=== PATIENT | female | born 1965 | race Caucasian/White ===

== ENCOUNTER 2021-07-28 19:38 | Emergency (ER) | payer BC, SELFPAY ==
[2021-07-28 19:39] VITALS: BP 144/97; PULSE 97; RESP 16; TEMP 37.1; O2SAT 98; BMI 35.4
--- NOTE | 2021-07-28 20:21 | CT_ITS ---
PROCEDURE INFORMATION: Exam: CT Abdomen And Pelvis With Contrast Exam date and time: 07/28/2021 9:43 PM Age: 56 years old Clinical indication: Abdominal pain; Generalized; Additional info: Abd pain TECHNIQUE: Imaging protocol: Computed tomography of the abdomen and pelvis with contrast. Radiation optimization: All CT scans at this facility use at least one of these dose optimization techniques: automated exposure control; mA and/or kV adjustment per patient size (includes targeted exams where dose is matched to clinical indication); or iterative reconstruction. Contrast material: ISOVUE; Contrast volume: 75 ml; Contrast route: IV; COMPARISON: No relevant prior studies available. FINDINGS: Lungs: Subsegmental atelectasis or interstitial scarring in the posterior lower lungs. No focal consolidation, as visualized. Heart: Coronary artery calcification is present. Liver: Hepatomegaly. Heterogeneously diminished liver attenuation suggesting patchy fatty change. No mass. Gallbladder and bile ducts: Cholelithiasis, multiple calcified gallstones pooling in the gallbladder neck. Distended gallbladder. No definite wall thickening or pericholecystic fluid. Borderline dilated common duct 7-8 mm. No calcified stones are seen in the ducts. No intrahepatic biliary dilatation. Pancreas: Mildly diminished attenuation in the posterior body of pancreas toward the left of midline series 3, image 62, coronal images 32-33, sagittal images 74-75. This could be an area of edema, ill-defined 1.5 cm mass or cyst, or focal fatty change. This has HU density measurements of 5-20. No ductal dilatation. There is slight retroperitoneal soft tissue edema on the left, but this is likely emanating from the left kidney rather than pancreas. Spleen: The spleen is normal. Adrenal glands: The adrenal glands are normal. Kidneys and ureters: There is mild to moderate left hydronephrosis, with an obstructing stone at left ureteropelvic junction of approximately 9 x 5 x 8 mm diameter series 3, image 80, and coronal series 1001, image 38. 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 There is an additional 6 mm nonobstructing stone at the left lower pole. Left perinephric edema is probably due to the obstruction, differential would be superimposed UTI. On the right, there is no hydronephrosis, hydroureter, or calcified obstructing stone. A hypoattenuating 1 cm posterior right renal cortical lesion series 3, image 82 and coronal image 47 has heterogeneous internal enhanced density of approximately 16 -38 HU, and could be complex cyst or solid lesion. There are scattered subcentimeter hypoattenuating lesions in the right kidney of up to 8 mm which may be tiny cysts, too small to accurately characterize. Stomach and bowel: There is diverticulosis coli, without evidence of acute diverticulitis. Though there is trace left pericolic soft tissue stranding, but this appears to be emanating from the left kidney. Some scattered small intestinal air-fluid levels, no significantly dilated loops or mucosal thickening. No acute findings in the stomach. A very small hiatal hernia. Appendix: No findings of appendicitis. Intraperitoneal space: There is no free intraperitoneal air. There is no significant free intraperitoneal fluid. Arteries: There is no aortic aneurysm. Veins: Patent enhancing main portal vein. No portal venous gas. Lymph nodes: Slightly prominent left retroperitoneal node 1.4 x 1.0 x 1.8 cm at the level of the left kidney, probably reactive, series 3,
[2021-07-28 20:30] LABS: Microscopic, Urine URINE MICROSCOPIC (MICROSCOPIC)
[2021-07-28 20:37] LABS: Appearance,Urine SL CLOUDY (Clear); Bilirubin,Urine Negative (Negative); Blood, Urine TRACE-I (Negative); Color,Urine YELLOW (Yellow); Glucose,Urine (UA) Negative (Negative); Ketones,Urine Negative (Negative); Leukocyte Esterase,Urine Negative (Negative); Nitrate,Urine Negative (Negative); Protein,Urine Negative (Negative); Specific Gravity, Urine 1.025 (1.005-1.030); Urobilinogen,Urine 0.2 EU/dl (0.2)
[2021-07-28 20:47] LABS: Basophils # 0.2 K/mm3 (0-0.2); Eosinophils # 0.2 K/mm3 (0.0-0.4); Eosinophils % 1.4 % (0.1-12.0); Hematocrit 46.5 % (37.0-47.0); Hemoglobin 15.2 g/dL (12.2-16.2); Lymphocytes % 17.2 % (10-50); Mean Corpuscular HGB Conc 32.7 g/dL (31.8-35.4); Mean Corpuscular Hemoglobin 31.3 pg (27.0-31.2); Mean Corpuscular Volume 95.8 fl (81-99); Mean Platelet Volume 8.6 fl (7.4-10.4); Monocytes # 0.6 K/mm3 (0.1-1.0); Monocytes % 5.3 % (1.7-9.3); Neutrophils # 8.6 K/mm3 (1.8-7.8); Neutrophils % 74.2 % (37.0-80.0); Platelet Count 324 K/mm3 (142-424); Red Blood Count 4.85 M/mm3 (4.20-5.40); White Blood Count 11.6 K/mm3 (4.8-10.8)
[2021-07-28 20:49] LABS: Bacteria,Urine 2+ /lpf; RBC,Urine Occasional #/hpf (0-3)
[2021-07-28 20:59] LABS: Alanine Aminotransferase 44 U/L (12-78); Albumin Level 4.2 g/dl (3.5-5.0); Albumin/Globulin Ratio 1.2 (1.1-1.8); Alkaline Phosphatase 90 U/L (38-126); Amylase 59 U/L (30-110); Anion Gap 11.5 mEq/L (5-15); Aspartate Amino Transferase 42 U/L (14-36); Bilirubin,Total 1.1 mg/dl (0.2-1.3); Blood Urea Nitrogen 21 mg/dl (7-17); Calcium 9.5 mg/dl (8.4-10.2); Carbon Dioxide 27 mmol/L (22.0-30.0); Chloride 106 mmol/L (98-107); Creatinine Clearance Estimated 89 mL/min (50-200); Estimated Glomerular Filt Rate 46 ml/min (>60); GFR (African American) 56 ML/MIN (>60); Globulin 3.5 g/dL (1.3-3.2); Glucose 146 mg/dl (74-100); Lipase 48 U/L (23-300); Potassium 3.5 mmoL/L (3.5-5.1); Sodium 141 mmol/L (136-145); Total Protein,Serum 7.7 g/dl (6.3-8.2)
[2021-07-28 21:01] VITALS: BP 147/90; PULSE 90; O2SAT 94
--- NOTE | 2021-07-28 21:02 | HMH.EDNVD ---
ED Disposition Clinical Impression: Renal colic on left side Cholelithiasis Qualifiers: Cholelithiasis location: gallbladder Cholecystitis presence: without cholecystitis Biliary obstruction: without biliary obstruction Qualified Code(s): K80.20 - Calculus of gallbladder without cholecystitis without obstruction Disposition: Home, Self-Care Condition on Discharge: Good Instructions: DI for Kidney Stones Additional Instructions: call urology in am Prescriptions: Tamsulosin HCl [Flomax 0.4mg capsule] 0.4 mg PO HS #10 cap Transmission Status: [facility] to [id number] levoFLOXacin [Levaquin 500mg tab] 500 mg PO DAILY #7 tab Transmission Status[id number] Referrals: Provider,Referral, [Primary Care Provider] - - Critical Care Critical Care Time: No Attestation: On 07/28/21, the high probability of a clinically significant, sudden or life threatening deterioration of the following system(s) required my full and direct attention, intervention and personal management. The time I documented below is in addition to time spent performing reported procedures but includes the following listed in this critical care notation. Medical Decision Making - Medical Records Medical records reviewed: Yes: I reviewed the patient's medical records. - Demetrius Inquiry Pt receiving controlled substance: No Vital Signs: 07/28/21 19:39 Temperature 98.7 F Temperature Source Oral Pulse Rate [Left] 97 H Respiratory Rate 16 Blood Pressure [Right Arm] 144/97 H Blood Pressure Mean [Right Arm] 112 02 Sat by Pulse Oximetry 98 Oxygen Delivery Method Room Air - Lab Data Lab results reviewed: Yes: I reviewed the patient's lab results. Lab Results 07/28/21 20:11: Urine Color Yellow, Urine Appearance Sl cloudy, Urine pH 6.0, Ur Specific [place] 1.025, Urine Protein Negative, Urine Glucose (UA) Negative, Urine Ketones Negative, Urine Blood Trace-i, Urine Nitrate Negative, Urine Bilirubin Negative, Urine Urobilinogen 0.2, Ur Leukocyte Esterase Negative, Urine RBC Occasional, Urine WBC 5-10, Ur Squamous Epith Cells 3-5, Urine Bacteria 2+ 07/28/21 20:41: WBC 11.6 H, RBC 4.85, Hgb 15.2, Hct 46.5, MCV 95.8, MCH 31.3 H, MCHC 32.7, RDW 14.0, Plt Count 324, MPV 8.6, Neut % (Auto) 74.2, Lymph % (Auto) 17.2, [place] % (Auto) 5.3, Eos % (Auto) 1.4, Baso % (Auto) 2.0, Neut # (Auto) 8.6 H, Lymph # (Auto) 2.0, [place] # (Auto) 0.6, Eos # (Auto) 0.2, Baso # (Auto) 0.2, ESR 20 07/28/21 20:41: Sodium 141, Potassium 3.5, Chloride 106, Carbon Dioxide 27, Anion Gap 11.5, BUN 21 H, Creatinine 1.20 H, Estimated Creat Clear 89, Estimated GFR 46 L, Est GFR ( Amer) 56 L, Glucose 146 H, Calcium 9.5, Total Bilirubin 1.1, AST 42 H, ALT 44, Alkaline Phosphatase 90, C-Reactive Protein 25.4 H, Total Protein 7.7, Albumin 4.2, Globulin 3.5 H, Albumin/Globulin Ratio 1.2, Amylase 59, Lipase 48, Procalcitonin 0.095 Result diagrams: 07/28/21 20:41 07/28/21 20:41 Orders (Tests/Meds): ED MEDICATIONS Generic Name Dose Route Start Last Admin Trade Name Freq PRN Reason Stop Dose Admin Sodium Chloride 1,000 mls @ 999 mls/hr 07/28/21 20:45 07/28/21 20:45 Sod Chlor 0.9% 1000ml Bag IV 07/28/21 21:45 999 mls/hr .Q1H1M OBED Administration Discontinued Medications Generic Name Dose Route Start Last Admin Trade Name Freq PRN Reason Stop Dose Admin Sodium Chloride 500 mls @ 999 mls/hr 07/28/21 20:30 07/28/21 20:51 Sod Chlor 0.9% 1000ml Bag IV 07/28/21 21:00 Not Given .Q31M OBED Iopamidol 75 ml 07/28/21 21:49 07/28/21 21:50 Iopamidol-370 (76%);100ml Bottle IV 07/28/21 21:50 75 ml ONCE ONE Administration Ketorolac Tromethamine 30 mg 07/28/21 20:22 07/28/21 20:44 Ketorolac 30mg/Ml Vial IV 07/28/21 20:23 30 mg ONCE ONE Administration Ondansetron HCl 4 mg 07/28/21 20:22 07/28/21 20:44 Ondansetron 4mg/2ml Vial IV 07/28/21 20:23 4 mg ONCE ONE Administration Sodium Chloride 10 ml
[2021-07-28 21:04] LABS: C-Reactive Protein 25.4 mg/L (0-4)
[2021-07-28 21:18] LABS: Procalcitonin 0.095 ng/mL (0.0-2.0)
[2021-07-28 21:19] LABS: Erythrocyte Sedimentation Rate 20 mm/hr (0-30)
[2021-07-28 21:30] VITALS: BP 146/94; PULSE 91; O2SAT 96
[2021-07-28 22:00] VITALS: BP 156/90; PULSE 91; O2SAT 97
[2021-07-28 22:30] VITALS: BP 146/94; PULSE 88; O2SAT 97
[2021-07-28 23:03] VITALS: BP 137/78; PULSE 81; RESP 18; TEMP 37.1; O2SAT 97
== END 2021-07-28 23:21 | disposition home or self-care (01) ==
PROVIDERS: Emergency Provider Emergency Medicine
DX: K80.20 Calculus of gallbladder without cholecystitis without obstruction (principal); N23 Unspecified renal colic
CPT/HCPCS: 74177; 80053; 81001; 82150; 83690; 84145; 85025; 85651; 86140; 87086; 96365; 96375; 99284; J2405; Q9967

== ENCOUNTER → 2021-07-30 10:48 | Outpatient (CLI) | payer BC, SELFPAY | PROVIDERS: Visit Provider Urology | DX: Z01.812 Encounter for preprocedural laboratory examination (principal); Z11.52 Encounter for screening for COVID-19; N20.0 Calculus of kidney | CPT/HCPCS: C9803; U0003; U0005 ==

== ENCOUNTER 2021-08-01 08:31 | Day surgery (SDC) | payer BC, SELFPAY ==
[2021-07-30 11:08] VITALS: BMI 35.4
[2021-08-01 08:54] VITALS: BP 160/97; PULSE 100; RESP 18; TEMP 36.8; O2SAT 98
--- NOTE | 2021-08-01 09:22 | ECG_ITS ---
APPROVED REPORT Exam: Resting ECG HR:90 bpm ECG Measurements Heart Rate 90 AXES NJ 158 P 39 QRSd 93 QRS 0 QT 344 T 30 QTc 392 Conclusion SINUS RHYTHM POSSIBLE LEFT ATRIAL ENLARGEMENT [-0.1mV P-WAVE IN V1/V2] BORDERLINE ECG UNCONFIRMED REPORT Electronically signed by : Ravi Eastman MD 08/01/2021 16:19:42
--- NOTE | 2021-08-01 10:06 | HMH.ANESCL ---
[facility] Anesthesia Checklist - Patient Identification Patient Identification: Arm Band - Structural Data Admitted From: Home Planned Operative Procedure/s: Cysto with stent Consent for Planned Operative Procedure(s) Verified: Yes - NPO Status Verified Time NPO: 00:00 - Additional verifications Anesthesia Reactions: No Hx Blood Transfusions: No Blood Transfusion Reaction: No - Airway Assessment C-Spine Mobility Assessed: Yes TMJ Mobility Assessed: Yes Dentition: Good Dentition - Neurological Assessment Level of Consciousness: Awake Hx Seizures: No Numbness or tingling in extremities: No - Anesthesia Plan Anesthesia Risk discussed: Yes Anesthesia Plan: Verified ASA Class: II Anesthesia Type: Local & MAC [facility] History I have reviewed the patient's past medical history: Yes Medical History: Denies:: Cancer, Diabetes Mellitus Type 1, Diabetes Mellitus Type 2, Internal Pacemaker, MRSA, Seizures *Have you ever received a pneumonia vaccine?: No *Have you received a flu vaccine this season?: No Other Medical History: Denies: Blood Transfusion Reaction Anesthesia experience/problems:: None Other Surgeries: No: Pacemaker Amputation: No Fractures: No - *Social History Last grade of school completed: High school graduate Smoking Status: Never smoker Alcohol Intake: current Alcohol Intake Frequency:: holidays/special occasions only Substance Use Type: denies use *Occupational Status:: unemployed Housing: house Household Members: spouse, family *Travel in the last 8 weeks: None Family Hx:: Diabetes, Stroke, Thyroid Disorder
--- NOTE | 2021-08-01 10:52 | XR_ITS ---
FINAL REPORT TECHNIQUE: Fluoroscopic guidance for the surgical services. CLINICAL HISTORY: URETEROSCOPY WITH STENT PLACEMENT in OR FT:1:35 FINDINGS: Fluoroscopy was provided for stent placement. Two spot films were obtained. 1 minute 35 seconds of fluoroscopy time was utilized. IMPRESSION: 1 minute 35 seconds of fluoroscopy time. Reviewed, Interpreted and Dictated by Jacob Lee III, MD Transcribed by Justin Hill Authenticated by Jacob Lee III, MD on 08/06/2021 10:51:[address] [facility]
[2021-08-01 10:55] VITALS: BP 135/77; PULSE 92; RESP 16; TEMP 36.4; O2SAT 93
[2021-08-01 11:10] VITALS: BP 146/89; PULSE 83; RESP 16; TEMP 36.4; O2SAT 96
[2021-08-01 11:25] VITALS: BP 159/97; PULSE 85; RESP 18; TEMP 36.4; O2SAT 96
[2021-08-01 11:40] VITALS: BP 152/94; PULSE 81; RESP 16; TEMP 36.4; O2SAT 96
[2021-08-01 12:10] VITALS: BP 143/83; PULSE 81; RESP 18; TEMP 36.4; O2SAT 96
--- NOTE | 2021-08-01 13:42 | HMH.OPNOTE ---
Date of procedure: 08/01/21 Pre-op Diagnosis:: 9 mm left UPJ stone Post-op Diagnosis:: Same Procedure performed:: Cystoscopy with stone manipulation and left stent placement Surgeon:: Braulio Moreno MD [facility] INSTALLER:: Niraj Nunez Anesthesia: MAC Estimated blood loss (mL): 0 Clinical Note:: 56-year-old white female who was in the emergency room last week with a 9 mm left UPJ stone. I called the patient earlier this week to discuss the findings and set her up for stent placement today. We discussed the operative procedure and need for further treatment with left ESWL. She wished to proceed. Operative findings:: 9 mm stone at the left UPJ. It was manipulated back into the left renal pelvis and a left ureteral stent was placed without difficulty. Operative note:: Patient taken to the operating room after informed consent was obtained. She was placed on the operating table in the supine position and general anesthesia administered. Preoperative antibiotics and sequential compression devices were placed. She was then placed into the dorsal lithotomy position and prepped and draped in the standard surgical fashion. 22 Setswana cystoscope passed into the urethra and into the bladder. The bladder was examined in a systematic fashion and no abnormalities were noted. The ureteral orifices in their normal anatomic position. A 5 Setswana ureteral catheter was passed into the left ureteral orifice and under fluoroscopy up to the level of the UPJ stone. The stone was able to be manipulated back into the left renal pelvis and the guidewire then passed through the ureteral catheter and the catheter removed. A 6 x 26 Setswana stent then passed over the guidewire and the guidewire removed. Fluoroscopy revealed a good curl proximally and distally. The string was left on for later removal. Patient tolerated procedure well without complication. Condition: stable Disposition: same day Specimens:: None Complications:: None
== END 2021-08-01 12:10 | disposition home or self-care (01) ==
LOC: OR 08:39
PROVIDERS: Visit Provider Urology
PROC: (CPT 52330; principal; 2021-08-01 10:00)
DX: N20.1 Calculus of ureter (principal); Z79.899 Other long term (current) drug therapy; Z83.3 Family history of diabetes mellitus; Z82.3 Family history of stroke; Z83.49 Family history of other endocrine, nutritional and metabolic diseases
CPT/HCPCS: 52330; 74018; 76000; 93005; 96374; C2617; J2704

== ENCOUNTER → 2021-08-27 09:29 | Outpatient (CLI) | payer BC, SELFPAY ==
--- NOTE | 2021-08-27 09:32 | XR_ITS ---
FINAL REPORT CLINICAL HISTORY: ureteral stone - LT FINDINGS: ABDOMEN SINGLE VIEW A single view of the abdomen was obtained. There is a nonobstructive bowel gas pattern. There are no abnormally dilated loops of small bowel. There is a moderate amount of retained stool. A left-sided ureteral stent is present. There are 2 left renal stones measuring up to 11 mm. There are multiple phleboliths in pelvis. IMPRESSION: Two left renal stones measuring up to 11 mm. Moderate amount of retained stool. Reviewed, Interpreted and Dictated by Jacob Lee III, MD Transcribed by Carola Osuna Authenticated by Jacob Lee III, MD on 08/27/2021 10:10:39 AM [facility]
[2021-08-27 09:43] LABS: MANUAL DIFFERENTIAL MANUAL DIFFERENTIAL (MANUAL DIFF)
[2021-08-27 10:28] LABS: Basophils # 0.1 K/mm3 (0-0.2); Basophils % 1.9 % (0.1-2.0); Eosinophils # 0.4 K/mm3 (0.0-0.4); Eosinophils % 6.9 % (0.1-12.0); Hematocrit 43.7 % (37.0-47.0); Hemoglobin 14.4 g/dL (12.2-16.2); Lymphocytes % 33.9 % (10-50); Mean Corpuscular HGB Conc 33.1 g/dL (31.8-35.4); Mean Corpuscular Hemoglobin 31.3 pg (27.0-31.2); Mean Corpuscular Volume 94.5 fl (81-99); Mean Platelet Volume 8.5 fl (7.4-10.4); Monocytes # 0.4 K/mm3 (0.1-1.0); Monocytes % 7.6 % (1.7-9.3); Neutrophils # 2.9 K/mm3 (1.8-7.8); Neutrophils % 49.6 % (37.0-80.0); Platelet Count 276 K/mm3 (142-424); Red Blood Count 4.62 M/mm3 (4.20-5.40); Red Cell Distribution Width 14.3 % (11.5-17.5); White Blood Count 5.8 K/mm3 (4.8-10.8)
[2021-08-27 10:29] LABS: Anion Gap 10.7 mEq/L (5-15); Blood Urea Nitrogen 17 mg/dl (7-17); Calcium 10.1 mg/dl (8.4-10.2); Carbon Dioxide 29 mmol/L (22.0-30.0); Chloride 108 mmol/L (98-107); Estimated Glomerular Filt Rate 74 ml/min (>60); GFR (African American) 89 ML/MIN (>60); Glucose 98 mg/dl (74-100); Potassium 4.7 mmoL/L (3.5-5.1); Sodium 143 mmol/L (136-145)
[2021-08-27 16:27] LABS: Eosinophils % 3 % (0-3); Lymphocytes % 39 % (10-50); Monocytes % 6 % (2-9); Neutrophils % 52 % (42-76); Platelet Estimate Normal; RBC Morphology Normal; Total Cells Counted 100
== END ==
PROVIDERS: Visit Provider Urology
DX: Z01.812 Encounter for preprocedural laboratory examination (principal); Z11.52 Encounter for screening for COVID-19; N20.1 Calculus of ureter
CPT/HCPCS: 36415; 74018; 80048; 85007; 85014; 85018; 85048; 85049; C9803; U0003; U0005

== ENCOUNTER 2021-08-29 10:47 | Day surgery (SDC) | payer BC, SELFPAY ==
[2021-08-27 10:44] VITALS: BMI 35.4
[2021-08-29] VITALS (10 sets, daily range): BP systolic 132–157; BP diastolic 77–97; PULSE 84–100; RESP 18; TEMP 36.5–43; O2SAT 93–99
--- NOTE | 2021-08-29 10:56 | XR_ITS ---
FINAL REPORT CLINICAL HISTORY: PRE OP. URETERAL STONE COMPARISON: August 27, 2021 FINDINGS: SINGLE VIEW ABDOMEN A single view of the abdomen was obtained. There is a nonobstructive bowel gas pattern. There are no abnormally dilated loops of small bowel. There are 2 left renal stones, the largest measures 9 mm. There is a left ureteral stent present. There are no definite ureteral stones identified. There are multiple phleboliths. Appearance is visually stable. IMPRESSION: Renal stones as above. Reviewed, Interpreted and Dictated by Jacob Lee III, MD Transcribed by Georgette Rodriguez Authenticated by Jacob Lee III, MD on 08/29/2021 12:16:44 PM [facility]
--- NOTE | 2021-08-29 12:40 | P.PN_ITS ---
[facility] Anesthesia Checklist - Patient Identification Patient Identification: Arm Band, Verbal (Name & ) - Structural Data Admitted From: Home Planned Operative Procedure/s: Left ESWL Consent for Planned Operative Procedure(s) Verified: Yes Verified Documents: Surgical Consent - NPO Status Verified Time NPO: 00:00 - Additional verifications Anesthesia Reactions: No Hx Blood Transfusions: No Blood Transfusion Reaction: No - Airway Assessment C-Spine Mobility Assessed: Yes TMJ Mobility Assessed: Yes Dentition: Good Dentition - Neurological Assessment Level of Consciousness: Awake, Alert, Appropriate - Anesthesia Plan Anesthesia Risk discussed: Yes ASA Class: II Anesthesia Type: General [facility] History I have reviewed the patient's past medical history: Yes Medical History: Denies:: Cancer, Diabetes Mellitus Type 1, Diabetes Mellitus Type 2, Internal Pacemaker, MRSA, Seizures *Have you ever received a pneumonia vaccine?: No *Have you received a flu vaccine this season?: No Other Medical History: Denies: Blood Transfusion Reaction Anesthesia experience/problems:: none Other Surgeries: No: Pacemaker Amputation: No Fractures: No - *Social History Last grade of school completed: High school graduate Smoking Status: Never smoker Alcohol Intake: never Alcohol Intake Frequency:: holidays/special occasions only Substance Use Type: denies use *Occupational Status:: unemployed Housing: house Household Members: family *Travel in the last 8 weeks: None Family Hx:: Diabetes, Stroke, Thyroid Disorder
--- NOTE | 2021-08-29 13:07 | HMH.OPNOTE ---
Date of procedure: 08/29/21 Pre-op Diagnosis:: Left nephrolithiasis Post-op Diagnosis:: Same Procedure performed:: Left ESWL Surgeon:: Braulio Moreno MD [facility] ATTENDANT:: Other (artem gustafson) Anesthesia: LMA Estimated blood loss (mL): 0 Clinical Note:: 56-year-old white female with recent left renal colic noted to have a 7 mm stone in the left proximal ureter. She was taken to the operating room where left stone manipulation left stent was placed. She presents today for ESWL management of the left renal stone as well as a smaller left kidney stone. Operative findings:: To well calcified stones in the left lower pole. Stent was noted to be in good position. ESWL performed without problems. Operative note:: Patient taken to the operating room after informed consent was obtained. She was placed on the operating table in a supine position and general anesthesia administered. Preoperative antibiotics and sequential compression devices placed. F2 of the lithotripter was focused onto the larger left renal stone. The smaller 3 mm stone was adjacent to the 8 mm stone and 3000 shockwaves delivered to the stones and the maximum energy level of 7. There appeared to be very good fragmentation of the stones. Patient tolerated the procedure well. Condition: stable Disposition: PACU Specimens:: None Complications:: None
--- NOTE | 2021-09-01 07:20 | HMH.ANESI ---
[facility] Anesthesia Record Part I Intake, IV Amount: 700 Estimated blood loss (mL): 0 Urine output (mL): 0 Blood Products used (#): none Blood Pressure: 145/94 SaO2: 93 Pulse Rate: 100 Respiratory Rate: 20 Temperature: 98.3 F Patient is:: Drowsy Stable to PACU at:: 13:01
[2021-09-01 07:22] VITALS: BP 145/94; PULSE 100; RESP 20; TEMP 36.8; O2SAT 93
--- NOTE | 2021-09-01 07:22 | P.PN_ITS ---
[facility] Anesthesia Record Part II Discharge Time: 13:31 Destination: Home PACU nurse assessment reviewed?: Yes Patient Condition:: Good Anesthesia Complications:: None Swallowing reflex intact?: Yes Cyanosis?: No Blood Pressure: 155/95 Pulse Rate: 89 Temperature: 97.0 F Mental Status: Alert & Oriented Pain level:: 0 Nausea and/or vomitting:: None Intake, IV Amount: 0
[2021-09-01 07:24] VITALS: BP 155/95; PULSE 89; TEMP 36.1
== END 2021-08-29 14:01 | disposition home or self-care (01) ==
PROVIDERS: PCP Urology; Visit Provider Urology
PROC: (CPT 50590; principal; 2021-08-29 12:30)
DX: N20.2 Calculus of kidney with calculus of ureter (principal); Z83.3 Family history of diabetes mellitus; Z82.3 Family history of stroke; Z83.49 Family history of other endocrine, nutritional and metabolic diseases
CPT/HCPCS: 50590; 74018; 96374; J2405

== ENCOUNTER → 2021-09-05 10:51 | Outpatient (CLI) | payer BC, SELFPAY ==
--- NOTE | 2021-09-05 10:57 | XR_ITS ---
FINAL REPORT CLINICAL HISTORY: KIDNEY STONE F/U COMPARISON: August 29, 2021 FINDINGS: SINGLE VIEW ABDOMEN A single view of the abdomen was obtained. There is a nonobstructive bowel gas pattern. There is a moderate to large amount of retained stool in the colon. There are no abnormally dilated loops of small bowel. Multiple phleboliths in the pelvis. A left ureteral stent remains in place. There has been interval improvement in the left lower pole renal stones. There are multiple presumed stone fragments in the region measuring up to 5 mm. IMPRESSION: Interval improvement in left lower pole renal stones as above. Constipation. Reviewed, Interpreted and Dictated by Jacob Lee III, MD Transcribed by Georgette Rodriguez Authenticated by Jacob Lee III, MD on 09/05/2021 01:37:36 PM [facility]
== END ==
PROVIDERS: Visit Provider Urology
DX: N20.0 Calculus of kidney (principal)
CPT/HCPCS: 74018

== ENCOUNTER → 2021-09-05 16:30 | Outpatient (CLI) | payer BC, SELFPAY ==
[2021-09-15 20:49] LABS: Ca oxalate dihydrate 10%
== END ==
PROVIDERS: Visit Provider Urology
DX: N20.0 Calculus of kidney (principal)
CPT/HCPCS: 82370

== ENCOUNTER 2021-09-09 19:01 | Inpatient (IN) | payer BC, SELFPAY ==
[2021-09-09 19:02] VITALS: BP 115/65; PULSE 112; RESP 18; TEMP 36.7; O2SAT 97; BMI 37.2
--- NOTE | 2021-09-09 19:17 | HMH.EDGENADL ---
ED Disposition Condition on Discharge: Good - Critical Care Critical Care Time: No <Suraj Degroot - Last Filed: 09/09/21 19:42> <Guy Dowd - Last Filed: 09/09/21 21:05> Clinical Impression: Severe sepsis with acute organ dysfunction, Renal colic on left side, DISH (diffuse idiopathic skeletal hyperostosis), Hydronephrosis concurrent with and due to calculi of kidney and ureter Nausea & vomiting Qualifiers: Vomiting type: unspecified Qualified Code(s): R11.2 - Nausea with vomiting, unspecified UTI (urinary tract infection) Qualifiers: Urinary tract infection type: site unspecified Hematuria presence: without hematuria Qualified Code(s): N39.0 - Urinary tract infection, site not specified Cholelithiasis Qualifiers: Cholelithiasis location: gallbladder Cholecystitis presence: without cholecystitis Biliary obstruction: without biliary obstruction Qualified Code(s): K80.20 - Calculus of gallbladder without cholecystitis without obstruction Disposition: Admitted As Inpatient Referrals: Provider,Referral, MD [Primary Care Provider] - Attestation: On 09/09/21, the high probability of a clinically significant, sudden or life threatening deterioration of the following system(s) required my full and direct attention, intervention and personal management. The time I documented below is in addition to time spent performing reported procedures but includes the following listed in this critical care notation. Medical Decision Making - Medical Records Medical records reviewed: Yes: I reviewed the patient's medical records. - Demetrius Inquiry Pt receiving controlled substance: No - Lab Data Result diagrams: 09/09/21 19:26 - ECG Data Tracing #1 I reviewed this ECG and interpreted as documented below: <Suraj Degroot - Last Filed: 09/09/21 19:42> - Lab Data Lab results reviewed: Yes: I reviewed the patient's lab results. Result diagrams: 09/09/21 19:26 09/09/21 19:26 - CT Data CT Scan: Abdomen, Pelvis Time Received: 21:[address] Reviewed: Yes: I have viewed the radiologist's interpretation Preliminary Findings: Abnormal (see report ) <Guy Dowd - Last Filed: 09/09/21 21:05> Vital Signs: 09/09/21 19:02 Temperature 98.1 F Temperature Source Oral Pulse Rate [Right] 112 H Respiratory Rate 18 Blood Pressure [Right Arm] 115/65 Blood Pressure Mean [Right Arm] 81 02 Sat by Pulse Oximetry 97 - Lab Data Lab Results 09/09/21 19:13: Urine Color [place], Urine Appearance Cloudy, Urine pH 5.0, Ur Specific [place] >= 1.030, Urine Protein 2+, Urine Glucose (UA) Negative, Urine Ketones Trace, Urine Blood 3+, Urine Nitrate Positive, Urine Bilirubin 1+ A, Urine Urobilinogen 1.0, Ur Leukocyte Esterase 1+ A, Urine RBC 20-50, Urine WBC Tntc, Ur Squamous Epith Cells 3-5, Urine Bacteria 2+ 09/09/21 19:26: WBC 21.7 H*, RBC 4.68, Hgb 14.3, Hct 44.0, MCV 94.1, MCH 30.6, MCHC 32.6, RDW 14.5, Plt Count 367, MPV 8.6, Neut % (Auto) 90.1 H, Lymph % (Auto) 3.3 L, [place] % (Auto) 3.4, Eos % (Auto) 1.4, Baso % (Auto) 1.8, Neut # (Auto) 19.6 H, Lymph # (Auto) 0.7, [place] # (Auto) 0.7, Eos # (Auto) 0.3, Baso # (Auto) 0.4 H 09/09/21 19:26: Sodium 137, Potassium 3.8, Chloride 103, Carbon Dioxide 23, Anion Gap 14.8, BUN 17, Creatinine 1.40 H, Estimated Creat Clear 80, Estimated GFR 39 L, Est GFR ( Amer) 47 L, Glucose 169 H, Calcium 9.4, Total Bilirubin 2.3 H, AST 35, ALT 33, Alkaline Phosphatase 80, Troponin I < 0.01, Total Protein 7.7, Albumin 4.2, Globulin 3.5 H, Albumin/Globulin Ratio 1.2 09/09/21 19:49: Lactate 1.8 Orders (Tests/Meds): ED MEDICATIONS Generic Name Dose Route Start Last Admin Trade Name Freq PRN Reason Stop Dose Admin Sodium Chloride 1,000 mls @ 999 mls/hr 09/09/21 19:30 09/09/21 19:33 Sod Chlor 0.9% 1000ml Bag IV 09/09/21 20:30 999 mls/hr .Q1H1M OBED Administration Ceftriaxone Sodium 1 gm/ 50 mls @ 100 mls/hr 09/09/21 19:45 09/09/21 20:03 Sodium Chloride IV
[2021-09-09 19:26] LABS: Microscopic, Urine URINE MICROSCOPIC (MICROSCOPIC)
[2021-09-09 19:30] VITALS: BP 108/69; PULSE 109; O2SAT 96
[2021-09-09 19:31] LABS: Appearance,Urine CLOUDY (Clear); Blood, Urine 3+ (Negative); Color,Urine ORANGE (Yellow); Glucose,Urine (UA) Negative (Negative); Ketones,Urine TRACE (Negative); Leukocyte Esterase,Urine 1+ (Negative); Nitrate,Urine POSITIVE (Negative); Protein,Urine 2+ (Negative); Specific Gravity, Urine >= 1.030 (1.005-1.030)
[2021-09-09 19:33] LABS: Bilirubin,Urine 1+ (Negative)
[2021-09-09 19:35] LABS: Basophils # 0.4 K/mm3 (0-0.2); Basophils % 1.8 % (0.1-2.0); Eosinophils # 0.3 K/mm3 (0.0-0.4); Eosinophils % 1.4 % (0.1-12.0); Hemoglobin 14.3 g/dL (12.2-16.2); Lymphocytes # 0.7 K/mm3 (0.7-4.5); Lymphocytes % 3.3 % (10-50); Mean Corpuscular HGB Conc 32.6 g/dL (31.8-35.4); Mean Corpuscular Hemoglobin 30.6 pg (27.0-31.2); Mean Corpuscular Volume 94.1 fl (81-99); Mean Platelet Volume 8.6 fl (7.4-10.4); Monocytes # 0.7 K/mm3 (0.1-1.0); Monocytes % 3.4 % (1.7-9.3); Neutrophils # 19.6 K/mm3 (1.8-7.8); Neutrophils % 90.1 % (37.0-80.0); Platelet Count 367 K/mm3 (142-424); Red Blood Count 4.68 M/mm3 (4.20-5.40); Red Cell Distribution Width 14.5 % (11.5-17.5); White Blood Count 21.7 K/mm3 (4.8-10.8)
--- NOTE | 2021-09-09 19:41 | CT_ITS ---
PROCEDURE INFORMATION: Exam: CT Abdomen And Pelvis Without Contrast Exam date and time: 09/09/2021 7:49 PM Age: 56 years old Clinical indication: Other: Hematuria; Additional info: Hematuria, leukocytosis TECHNIQUE: Imaging protocol: Computed tomography of the abdomen and pelvis without contrast. Radiation optimization: All CT scans at this facility use at least one of these dose optimization techniques: automated exposure control; mA and/or kV adjustment per patient size (includes targeted exams where dose is matched to clinical indication); or iterative reconstruction. COMPARISON: CT ABDOMEN PELVIS W CON 07/28/2021 9:43 PM FINDINGS: Diaphragm: Small hiatal hernia, unchanged. Liver: Fatty liver. Hepatomegaly, measuring 22.0 cm in craniocaudal axis. Gallbladder and bile ducts: Cholelithiasis without evidence of acute cholecystitis. Pancreas: Ovoid 2.0 x 1.7 cm solid soft tissue lesion in the pancreatic tail (axial image 39) with nearly identical imaging characteristics as the spleen. Previously described hypoattenuating splenic lesion is not appreciated on today's exam. No pancreatic ductal dilation. Spleen: Unremarkable. Adrenal glands: Unremarkable. Kidneys and ureters: Left ureter contains multiple (5 or 6) stones measuring between 3-7 mm extending from the ureteropelvic junction to the ureterovesical junction with mild associated left hydroureteronephrosis and moderate amount of renal edema. Multiple additional non-obstructing stones measuring between 2-5 mm in the left renal pelvis, most of which appear new since 07/28/2021 CT. No right renal stones or hydronephrosis. No focal renal lesions are appreciated on this noncontrast enhanced exam. Stomach and bowel: Colonic diverticulosis without evidence of diverticulitis, unchanged. Appendix: No evidence of appendicitis. Intraperitoneal space: No free fluid. No pneumoperitoneum. Vasculature: Mild amount of calcific arterial atherosclerosis. No abdominal aortic aneurysm. Phleboliths noted in the pelvis. Lymph nodes: Unremarkable. Urinary bladder: Unremarkable. Reproductive: Unremarkable. Bones/joints: No acute osseous abnormality. Multi-level bridging osteophytes in the spine compatible with diffuse idiopathic skeletal hyperostosis (DISH), unchanged. Soft tissues: Unremarkable. IMPRESSION: 1. Left ureter contains multiple (5 or 6) stones measuring between 3-7 mm extending from the ureteropelvic junction to the ureterovesical junction with mild associated left hydroureteronephrosis and moderate amount of renal edema. 2. Multiple additional non-obstructing stones measuring between 2-5 mm in the left renal pelvis, most of which appear new since 07/28/2021 CT. 3. Ovoid 2.0 x 1.7 cm solid soft tissue lesion in the pancreatic tail. 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 Nuclear medicine scintigraphy with sulfur colloid and/or heat damaged red blood cells could provide more definitive evaluation. 4. Fatty liver and hepatomegaly. Consider non-emergent referral to Hepatology. 5. Additional chronic ancillary findings are unchanged from prior exam, as detailed above.
[2021-09-09 19:42] LABS: MANUAL DIFFERENTIAL MANUAL DIFFERENTIAL (MANUAL DIFF)
[2021-09-09 19:49] LABS: Alanine Aminotransferase 33 U/L (12-78); Albumin Level 4.2 g/dl (3.5-5.0); Albumin/Globulin Ratio 1.2 (1.1-1.8); Alkaline Phosphatase 80 U/L (38-126); Anion Gap 14.8 mEq/L (5-15); Aspartate Amino Transferase 35 U/L (14-36); Bilirubin,Total 2.3 mg/dl (0.2-1.3); Blood Urea Nitrogen 17 mg/dl (7-17); Calcium 9.4 mg/dl (8.4-10.2); Carbon Dioxide 23 mmol/L (22.0-30.0); Chloride 103 mmol/L (98-107); Creatinine Clearance Estimated 80 mL/min (50-200); Estimated Glomerular Filt Rate 39 ml/min (>60); GFR (African American) 47 ML/MIN (>60); Globulin 3.5 g/dL (1.3-3.2); Glucose 169 mg/dl (74-100); Potassium 3.8 mmoL/L (3.5-5.1); Sodium 137 mmol/L (136-145); Total Protein,Serum 7.7 g/dl (6.3-8.2)
[2021-09-09 19:58] LABS: Bacteria,Urine 2+ /lpf; RBC,Urine 20-50 #/hpf (0-3); WBC,Urine TNTC #/hpf (0-3)
[2021-09-09 20:00] VITALS: BP 117/76; PULSE 106; O2SAT 98
[2021-09-09 20:06] LABS: Lactic Acid 1.8 mmol/L (0.7-2.1)
[2021-09-09 20:09] LABS: Troponin I < 0.01 ng/ml (0.00-0.034)
[2021-09-09 20:30] VITALS: BP 128/71; PULSE 104; O2SAT 96
--- NOTE | 2021-09-09 20:44 | PC.NURSE ---
Pt given warm blanket. No new needs.
--- NOTE | 2021-09-09 20:46 | PC.NURSE ---
supervisor burling and joining notified of pt admission and need for bed assignment
--- NOTE | 2021-09-09 20:48 | PC.NURSE ---
COVID SWAB COLLECTED AND SENT TO LAB.
[2021-09-09 20:52] LABS: Coronavirus 19, PCR Not Detected (NotDetected); Influenza A, PCR Not Detected (NotDetected); Influenza B, PCR Not Detected (NotDetected)
[2021-09-09 20:57] VITALS: BMI 37.5
[2021-09-09 21:47] VITALS: BP 97/59; PULSE 101; RESP 18; TEMP 36.7; O2SAT 96
--- NOTE | 2021-09-09 21:58 | PC.NURSE ---
patient up to floor via stretcher @ this time.
[2021-09-09 22:03] LABS: Lymphocytes % 5 % (10-50); Monocytes % 2 % (2-9); Neutrophils % 93 % (42-76); Platelet Estimate Normal; Total Cells Counted 100
[2021-09-09 22:08] VITALS: BP 109/67; PULSE 102; RESP 18; TEMP 36.8; O2SAT 94
[2021-09-10] VITALS (10 sets, daily range): BP systolic 109–140; BP diastolic 67–82; PULSE 99–133; RESP 16–20; TEMP 36.8–39.4; O2SAT 90–97; BMI 37.5
--- NOTE | 2021-09-10 04:33 | PC.NURSE ---
Addendum entered by Monae Hardy RN 09/10/21 06:07: Rechecked pt's temp at this time 100.0. Pt states no needs at this time. Original Note: Patient is A/O x3, can ambulate to bathroom independently. Pt voiced no c/o of pain throughout shift. Pt spiked a fever 102.9 , medicated per JUN. pt remains on room air with O2 >90%.
[2021-09-10 06:47] LABS: Anion Gap 13.7 mEq/L (5-15); Blood Urea Nitrogen 22 mg/dl (7-17); Calcium 8.6 mg/dl (8.4-10.2); Carbon Dioxide 22 mmol/L (22.0-30.0); Chloride 106 mmol/L (98-107); Creatinine Clearance Estimated 75 mL/min (50-200); Estimated Glomerular Filt Rate 36 ml/min (>60); GFR (African American) 43 ML/MIN (>60); Glucose 157 mg/dl (74-100); Potassium 3.7 mmoL/L (3.5-5.1); Sodium 138 mmol/L (136-145)
[2021-09-10 06:51] LABS: Basophils # 0.1 K/mm3 (0-0.2); Basophils % 0.3 % (0.1-2.0); Eosinophils % 0.1 % (0.1-12.0); Hematocrit 39.8 % (37.0-47.0); Hemoglobin 13.2 g/dL (12.2-16.2); Lymphocytes # 0.9 K/mm3 (0.7-4.5); Lymphocytes % 3.9 % (10-50); Mean Corpuscular HGB Conc 33.2 g/dL (31.8-35.4); Mean Corpuscular Hemoglobin 31.4 pg (27.0-31.2); Mean Corpuscular Volume 94.6 fl (81-99); Mean Platelet Volume 9.1 fl (7.4-10.4); Monocytes # 0.9 K/mm3 (0.1-1.0); Neutrophils # 20.4 K/mm3 (1.8-7.8); Neutrophils % 91.8 % (37.0-80.0); Platelet Count 328 K/mm3 (142-424); Red Blood Count 4.21 M/mm3 (4.20-5.40); Red Cell Distribution Width 14.5 % (11.5-17.5); White Blood Count 22.3 K/mm3 (4.8-10.8)
[2021-09-10 06:57] LABS: MANUAL DIFFERENTIAL MANUAL DIFFERENTIAL (MANUAL DIFF)
[2021-09-10 07:13] LABS: Lymphocytes % 4 % (10-50); Monocytes % 4 % (2-9); Neutrophils % 83 % (42-76); Platelet Estimate Normal; RBC Morphology Normal; Total Cells Counted 100
--- NOTE | 2021-09-10 07:49 | HMH.PHAVTE ---
[facility] Pharmacy VTE Monitoring - Patient Demographics Admission date: 09/10/21 Report Date: 09/10/21 Time: 07:49 Allergies/Adverse Reactions: Patient Allergies No Known Allergies Allergy (Verified 09/05/21 13:54) Height: 1.75 m Weight: 115.076 kg Patient Problems: Current Active Problems Renal colic on left side (Acute) Cholelithiasis (Acute) Nausea & vomiting (Acute) UTI (urinary tract infection) (Acute) Severe sepsis with acute organ dysfunction (Acute) DISH (diffuse idiopathic skeletal hyperostosis) (Acute) Hydronephrosis concurrent with and due to calculi of kidney and ureter (Acute) - VTE Risk Labs: VTE Related Lab Results Hgb 13.2 g/dL (12.2-16.2) 09/10/21 06:11 Hct 39.8 % (37.0-47.0) 09/10/21 06:11 Plt Count 328 K/mm3 (142-424) 09/10/21 06:11 BUN 22 mg/dl (7-17) H D 09/10/21 06:11 Creatinine 1.50 mg/dl (0.52-1.04) H 09/10/21 06:11 Estimated Creat Clear 75 mL/min (50-200) 09/10/21 06:11 Was VTE Risk Assessment Performed: Yes VTE Score: 3 VTE Risk Level: Low Risk Clinical Trial Participant: No - Prophylaxis VTE Prophylaxis Ordered?: Yes Types of VTE Prophylaxis: TEDS Knee High
--- NOTE | 2021-09-10 09:19 | HMH.HP ---
*Admission Date: 09/10/21 *Chief complaint: back pain *History of present illness: 56 yr old female presented to ed with c/o back pain and fever. Pt states recent lipotripsy to break up a stone about 2 weeks ago. pt states she started having back pain with a fever and chills. Pt states the symptoms continued and worsened so she came into the ed. while in ed she was found to have severe sepsis with organ dysfunction and admitted to hospital for IV antibiotics and urology consult. Pt states she has continued with fever and chills over night. [facility] History I have reviewed the patient's past medical history: Yes Medical History: Reports:: Kidney Stones Denies:: Cancer, Diabetes Mellitus Type 1, Diabetes Mellitus Type 2, Internal Pacemaker, MRSA, Seizures *Have you ever received a pneumonia vaccine?: No *Have you received a flu vaccine this season?: No Other Medical History: Denies: Blood Transfusion Reaction Other Surgeries: Yes: No Previous Surgery, Colonoscopy, Tubal Ligation. No: Pacemaker Amputation: No Fractures: No - *Social History Smoking Status: Never smoker Alcohol Intake: never Alcohol Intake Frequency:: holidays/special occasions only Substance Use Type: denies use *Occupational Status:: unemployed Housing: house Household Members: family *Travel in the last 8 weeks: None Family Hx:: Cancer, Diabetes, Hypertension, Stroke, Thyroid Disorder Review of Systems - Review of Systems Review of systems:: pertinent systems reviewed and negative unless documented below - Constitutional Reports chills, Reports fatigue, Reports fever(s), Reports malaise - Eyes Denies pain - ENT Denies bleeding gums - *Cardiovascular Denies chest pain at rest - *Respiratory Denies chest congestion - *Gastrointestinal Reports abdominal pain, Denies nausea - *Genitourinary Reports painful urination - *Musculoskeletal Denies joint pain - Integumentary/Breasts Denies rash - *Neurologic Denies behavioral changes, Denies localized weakness, Denies seizure-like activity - Psychiatric Denies lack of enjoyment - Endocrine Denies excessive sweating - Hematologic/Lymphatic Denies easy bruising - Allergic/Immunologic Denies itchy eyes Meds Home Medications Medication Instructions Recorded Confirmed Type No Known Home Medications 08/29/21 09/09/21 History Allergies Allergy/AdvReac Type Severity Reaction Status Date / Time No Known Allergies Allergy Verified 09/05/21 13:54 Exam Vital signs and Labs for Last 24 Hours: Temp Pulse Resp BP Pulse Ox 98.9 F 99 H 16 140/82 97 09/10/21 07:48 09/10/21 07:48 09/10/21 07:48 09/10/21 07:48 09/10/21 07:48 Laboratory Results - last 24 hr 09/09/21 19:13: Urine Color [place], Urine Appearance Cloudy, Urine pH 5.0, Ur Specific [place] >= 1.030, Urine Protein 2+, Urine Glucose (UA) Negative, Urine Ketones Trace, Urine Blood 3+, Urine Nitrate Positive, Urine Bilirubin 1+ A, Urine Urobilinogen 1.0, Ur Leukocyte Esterase 1+ A, Urine RBC 20-50, Urine WBC Tntc, Ur Squamous Epith Cells 3-5, Urine Bacteria 2+ 09/09/21 19:26: WBC 21.7 H*, RBC 4.68, Hgb 14.3, Hct 44.0, MCV 94.1, MCH 30.6, MCHC 32.6, RDW 14.5, Plt Count 367, MPV 8.6, Neut % (Auto) 90.1 H, Lymph % (Auto) 3.3 L, [place] % (Auto) 3.4, Eos % (Auto) 1.4, Baso % (Auto) 1.8, Neut # (Auto) 19.6 H, Lymph # (Auto) 0.7, [place] # (Auto) 0.7, Eos # (Auto) 0.3, Baso # (Auto) 0.4 H, Total Counted 100, Neutrophils % (Manual) 93 H, Lymphocytes % (Manual) 5 L, Monocytes % (Manual) 2, Platelet Estimate Normal 09/09/21 19:26: Sodium 137, Potassium 3.8, Chloride 103, Carbon Dioxide 23, Anion Gap 14.8, BUN 17, Creatinine 1.40 H, Estimated Creat Clear 80, Estimated GFR 39 L, Est GFR ( Amer) 47 L, Glucose 169 H, Calcium 9.4, Total Bilirubin 2.3 H, AST 35, ALT 33, Alkaline Phosphatase 80, Troponin I < 0.01, Total Protein 7.7, Albumin 4.2, Globulin 3.5 H, Albumin/Globulin Ratio 1.2 09/09/21 19:49: Lactate 1.8 09/09/21 20:46: SARS-C
--- NOTE | 2021-09-10 14:35 | PC.NURSE ---
Did speak with Masood Brantley APRN and make him aware of positive preliminary blood cx's being positive, NNO at this time.
--- NOTE | 2021-09-10 19:12 | ECG_ITS ---
APPROVED REPORT Exam: Resting ECG HR:112 bpm ECG Measurements Heart Rate 112 AXES DC 108 P 40 QRSd 89 QRS 39 QT 323 T 32 QTc 389 Conclusion SINUS TACHYCARDIA WITH SHORT DC INTERVAL ABNORMAL RHYTHM ECG UNCONFIRMED REPORT Electronically signed by : Ravi Eastman MD 09/12/2021 10:33:20
--- NOTE | 2021-09-10 19:44 | PC.NURSE ---
Pt tachycardic this afternoon, c/o of scott and fever. This RN called Dr. Eastman night monitor and he ordered to change abt to invanz IV and d/c rocephin and give a 500 ml bolus IV NS. Noted. CB in reach.
[2021-09-11] VITALS (24 sets, daily range): BP systolic 115–154; BP diastolic 63–91; PULSE 65–124; RESP 14–20; TEMP 36.6–43; O2SAT 91–97; BMI 39.0
--- NOTE | 2021-09-11 06:52 | PC.NURSE ---
Pt slept intermittently t/o shift. Pt c/o of headache and has had a temp t/o the night, medicated per JUN. HR was elevated beginning of shift 110-124, last vital HR had decreased in the 60's. Pt voiced no c/o of SOA, O2 sats >90%. Pt reported x1 diarrhea.
[2021-09-11 07:23] LABS: Basophils # 0.1 K/mm3 (0-0.2); Basophils % 0.7 % (0.1-2.0); Eosinophils % 0.2 % (0.1-12.0); Hematocrit 36.3 % (37.0-47.0); Hemoglobin 11.7 g/dL (12.2-16.2); Lymphocytes % 5.8 % (10-50); Mean Corpuscular HGB Conc 32.2 g/dL (31.8-35.4); Mean Corpuscular Volume 96.5 fl (81-99); Mean Platelet Volume 9.3 fl (7.4-10.4); Monocytes # 0.6 K/mm3 (0.1-1.0); Monocytes % 3.3 % (1.7-9.3); Neutrophils # 15.3 K/mm3 (1.8-7.8); Platelet Count 237 K/mm3 (142-424); Red Blood Count 3.76 M/mm3 (4.20-5.40); Red Cell Distribution Width 14.6 % (11.5-17.5)
[2021-09-11 07:35] LABS: MANUAL DIFFERENTIAL MANUAL DIFFERENTIAL (MANUAL DIFF)
[2021-09-11 07:47] LABS: Anion Gap 9.7 mEq/L (5-15); Blood Urea Nitrogen 21 mg/dl (7-17); Calcium 8.5 mg/dl (8.4-10.2); Carbon Dioxide 24 mmol/L (22.0-30.0); Chloride 104 mmol/L (98-107); Creatinine Clearance Estimated 90 mL/min (50-200); Estimated Glomerular Filt Rate 42 ml/min (>60); GFR (African American) 51 ML/MIN (>60); Glucose 109 mg/dl (74-100); Potassium 3.7 mmoL/L (3.5-5.1); Sodium 134 mmol/L (136-145)
[2021-09-11 08:02] LABS: Lymphocytes % 1 % (10-50); Monocytes % 3 % (2-9); Neutrophils % 96 % (42-76); Total Cells Counted 100
[2021-09-11 08:03] LABS: Anisocytosis 1+; Hypochromasia 1+; Macrocytosis 1+; Platelet Estimate Normal; Toxic Granulation 1+
--- NOTE | 2021-09-11 08:11 | PC.NURSE ---
During 0800 rounds, pt noted to have a fever of 103.2. Temp lowered in room, covers removed, ice packs placed to groin and axillae, and PRN tylenol given. Will reassess to see if fever has gone down.
--- NOTE | 2021-09-11 08:32 | XR_ITS ---
FINAL REPORT CLINICAL HISTORY: SOB COMPARISON: CT of the abdomen and pelvis CT dated September 09, 2021 FINDINGS: PA and lateral views of the chest were obtained. The cardiac and mediastinal silhouettes are within normal limits. There is bilateral lower lobe opacities which may represent atelectasis or pneumonia. There is likely a small left pleural effusion. There is no pneumothorax. No acute osseous abnormality is identified. IMPRESSION: Bilateral lower lobe opacities, atelectasis or pneumonia. Recommend follow-up. Reviewed, Interpreted and Dictated by Breana Alvarado MD Transcribed by Carola Osuna Authenticated by Breana Alvarado MD on 09/11/2021 10:04:51 AM [facility]
--- NOTE | 2021-09-11 09:08 | HMH.ACPN2 ---
Internal Medicine - PN: Subj *Date: 09/11/21 *Time: 09:19 Interval history: 56-year-old female patient sitting up in bed resting quietly urine has grown Klebsiella pneumoniae and antibiotics were changed to Invanz. White blood cell count from 23 down to 17 today she is reporting a little bit of nausea. Temperature this morning 103.2, there were some faint crackles bibasilar we will order chest x-ray Exam Vital signs and Labs for Last 24 Hours: Temp Pulse Resp BP Pulse Ox 103.2 F H 122 H 18 136/83 92 L 09/11/21 08:00 09/11/21 08:00 09/11/21 08:00 09/11/21 08:00 09/11/21 08:00 Laboratory Results - last 24 hr 09/09/21 19:13: Urine Color [place], Urine Appearance Cloudy, Urine pH 5.0, Ur Specific [place] >= 1.030, Urine Protein 2+, Urine Glucose (UA) Negative, Urine Ketones Trace, Urine Blood 3+, Urine Nitrate Positive, Urine Bilirubin 1+ A, Urine Urobilinogen 1.0, Ur Leukocyte Esterase 1+ A, Urine RBC 20-50, Urine WBC Tntc, Ur Squamous Epith Cells 3-5, Urine Bacteria 2+ 09/11/21 06:30: WBC 17.0 H, RBC 3.76 L, Hgb 11.7 L, Hct 36.3 L, MCV 96.5, MCH 31.0, MCHC 32.2, RDW 14.6, Plt Count 237 D, MPV 9.3, Neut % (Auto) 90.0 H, Lymph % (Auto) 5.8 L, [place] % (Auto) 3.3, Eos % (Auto) 0.2, Baso % (Auto) 0.7, Neut # (Auto) 15.3 H, Lymph # (Auto) 1.0, [place] # (Auto) 0.6, Eos # (Auto) 0.0, Baso # (Auto) 0.1, Total Counted 100, Neutrophils % (Manual) 96 H, Lymphocytes % (Manual) 1 L, Monocytes % (Manual) 3, Toxic Granulation 1+, Platelet Estimate Normal, Hypochromasia 1+, Anisocytosis 1+, Macrocytosis 1+ 09/11/21 06:30: Sodium 134 L, Potassium 3.7, Chloride 104, Carbon Dioxide 24, Anion Gap 9.7, BUN 21 H, Creatinine 1.30 H, Estimated Creat Clear 90, Estimated GFR 42 L, Est GFR ( Amer) 51 L, Glucose 109 H, Calcium 8.5 I & O for Last 24 hours: Intake & Output 09/08/21 09/09/21 09/10/21 09/11/21 23:59 23:59 23:59 23:59 Intake Total 3930 / 3930 1128 / 1128 Output Total 250 / 500 250 / 250 Balance 3680 / 3430 878 / 878 Weight 253 lb 11.2 oz 253 lb 8.505 oz 263 lb 12.8 oz Microbiology Reports for the Last 24 Hours: Microbiology 09/09/21 19:13 Urine,Clean Catch Urine Culture - Final Klebsiella pneumoniae 09/09/21 19:45 Blood Blood Culture - Preliminary 09/09/21 19:49 Blood Blood Culture - Preliminary - Constitutional no acute distress, obese - *Routine HEENT Exam Head: Present: normocephalic Eye: Present: EOMI ENT: Present: mucous membranes moist - *Routine Neck Exam Present: trachea midline. Absent: tracheal deviation - *Routine Respiratory Exam Present: crackles. Absent: accessory muscle use - *Routine Cardiovascular Exam Present: RRR - *Routine Abdominal Exam Present: soft, normoactive bowel sounds. Absent: tenderness, firm - *Routine Extremities Exam Present: full ROM, pulses intact. Absent: cyanosis, clubbing - *Routine Skin Exam Present: intact, dry. Absent: cyanosis, erythema - *Routine Neurological Exam Present: alert, oriented X3. Absent: motor deficit - Routine Psychiatric Exam Present: normal affect, normal thought process. Absent: auditory hallucinations Assessment and Plan (1) DISH (diffuse idiopathic skeletal hyperostosis) Status: Acute Category: Medical Code(s): M48.10 - Ankylosing hyperostosis [[place]], site unspecified (2) Hydronephrosis concurrent with and due to calculi of kidney and ureter Status: Acute Category: Medical Code(s): N13.2 - Hydronephrosis with renal and ureteral calculous obstruction (3) Nausea & vomiting Status: Acute Qualifiers: Vomiting type: unspecified Qualified Code(s): R11.2 - Nausea with vomiting, unspecified Category: Medical Code(s): R11.2 - Nausea with vomiting, unspecified (4) Renal colic on left side Status: Acute Category: Medical Code(s): N23 - Unspecified renal colic (5) Severe sepsis with acute organ dysfunction Status: Acute Category: Medical
--- NOTE | 2021-09-11 10:12 | XR_ITS ---
FINAL REPORT CLINICAL HISTORY: kidney stones COMPARISON: September 05, [address] of the abdomen and pelvis dated September 09, 2021 FINDINGS: A single supine view the abdomen was obtained. The bowel gas pattern is nonspecific but nonobstructive. The previously seen left ureteral stent has been removed. There are several small left renal stones which are decreased in size and number since the prior exam. A calcification in the left mid abdomen could be in the ureter. There are pelvic calcifications which are favored to be phleboliths. Osseous structures are within normal limits. IMPRESSION: 1. Interval removal of the previously seen left ureteral stent. 2. Left renal and possibly a left ureteral stone. Left renal stones have decreased in number and size since the prior exam. Reviewed, Interpreted and Dictated by Breana Alvarado MD Transcribed by Carola Osuna Authenticated by Breana Alvarado MD on 09/11/2021 11:35:38 AM [facility]
--- NOTE | 2021-09-11 10:27 | PC.NURSE ---
Per MD Moreno. KUB ordered and keep pt NPO, plan for renal stent placement today.
--- NOTE | 2021-09-11 11:40 | PC.NURSE ---
Surgery consent signed, pre-op checklist completed. Pt has bathed and is ready for surgery. Urine test sent to lab, waiting on results.
[2021-09-11 11:43] LABS: Urine Pregnancy, HCG Qual. Negative (Negative)
--- NOTE | 2021-09-11 12:02 | HMH.ANESCL ---
[facility] Anesthesia Checklist - Patient Identification Patient Identification: Arm Band - Structural Data Admitted From: Inpatient Planned Operative Procedure/s: Left Ureteroscopy with Stone Extraction Consent for Planned Operative Procedure(s) Verified: Yes Verified Documents: Surgical Consent, History and Physical - NPO Status Verified Time NPO: 00:00 - Additional verifications Anesthesia Reactions: No Hx Blood Transfusions: No Blood Transfusion Reaction: No - Airway Assessment C-Spine Mobility Assessed: Yes (mp2) TMJ Mobility Assessed: Yes Dentition: Good Dentition - Neurological Assessment Level of Consciousness: Awake, Alert - Anesthesia Plan Anesthesia Risk discussed: Yes Anesthesia Plan: Verified ASA Class: II Anesthesia Type: General [facility] History I have reviewed the patient's past medical history: Yes Medical History: Reports:: Kidney Stones Denies:: Cancer, Diabetes Mellitus Type 1, Diabetes Mellitus Type 2, Internal Pacemaker, MRSA, Seizures *Have you ever received a pneumonia vaccine?: No *Have you received a flu vaccine this season?: No Other Medical History: Denies: Blood Transfusion Reaction Anesthesia experience/problems:: nac Other Surgeries: Yes: Colonoscopy, Tubal Ligation. No: Pacemaker Amputation: No Fractures: No - *Social History Smoking Status: Never smoker Alcohol Intake: never Alcohol Intake Frequency:: holidays/special occasions only Substance Use Type: denies use *Occupational Status:: unemployed Housing: house Household Members: family *Travel in the last 8 weeks: None Family Hx:: Cancer, Diabetes, Hypertension, Stroke, Thyroid Disorder
--- NOTE | 2021-09-11 12:52 | XR_ITS ---
FINAL REPORT CLINICAL HISTORY: STENT PLACEMENT IN OR FINDINGS: FLUORO TIME PROCEDURE: Fluoroscopy in the operating room. HISTORY: Stent placement in OR FINDINGS: Fluoroscopy time was provided by the radiology department for the clinical service. One film 1 obtained. There is a wire projecting over the upper quadrant. Fluoroscopy exposure time: 1:08 IMPRESSION: See above Reviewed, Interpreted and Dictated by Breana Alvarado MD Transcribed by Carola Osuna Authenticated by Breana Alvarado MD on 09/11/2021 02:57:27 PM [facility]
--- NOTE | 2021-09-11 13:01 | HMH.ANESI ---
[facility] Anesthesia Record Part I Intake, IV Amount: 600 Estimated blood loss (mL): 0 Urine output (mL): 0 Blood Pressure: 119/72 SaO2: 95 Pulse Rate: 97 Respiratory Rate: 16 Temperature: 98.8 F Patient is:: Drowsy Stable to PACU at:: 13:00
--- NOTE | 2021-09-11 13:42 | HMH.CONS ---
*Admission Date: 09/10/21 *Reason for consult:: Left ureteral calculi *History of present illness: Patient is a 56-year-old white female with a history of left-sided kidney stones. She underwent left ESWL on August 29. She had undergone prior cystoscopy, stone manipulation and left stent placement. She returned to the office on September 05 and a KUB showed that the left kidney stone had fragmented and the stent was in good position. The stent was removed in the office and patient counseled on postural drainage and percussion. On September 09 she presented to the emergency room with left renal colic and a CT scan showed multiple stones in the left ureter with a larger stone at the left UVJ causing some obstruction. Patient was admitted for pain control. Her white count was 21,000. She had associated nausea and vomiting and has been treated for urosepsis and currently on Invanz. Her urine culture grew out Klebsiella as well as the blood cultures. Her white count today has improved to 17,000. A KUB was performed today showing some calcifications in the region of the distal ureter as well as an the left lower pole. [facility] History Medical History: Reports:: Kidney Stones Denies:: Cancer, Diabetes Mellitus Type 1, Diabetes Mellitus Type 2, Internal Pacemaker, MRSA, Seizures *Have you ever received a pneumonia vaccine?: No *Have you received a flu vaccine this season?: No Other Medical History: Denies: Blood Transfusion Reaction Anesthesia experience/problems:: nac Other Surgeries: Yes: No Previous Surgery, Colonoscopy, Tubal Ligation. No: Pacemaker Amputation: No Fractures: No - *Social History Smoking Status: Never smoker Alcohol Intake: never Alcohol Intake Frequency:: holidays/special occasions only Substance Use Type: denies use *Occupational Status:: unemployed Housing: house Household Members: family *Travel in the last 8 weeks: None Family Hx:: Cancer, Diabetes, Hypertension, Stroke, Thyroid Disorder Review of Systems - Review of Systems Review of systems:: pertinent systems reviewed and negative unless documented below - *Neurologic Denies behavioral changes, Denies localized weakness, Denies seizure-like activity Meds Home Medications Medication Instructions Recorded Confirmed Type No Known Home Medications 08/29/21 09/09/21 History Allergies Allergy/AdvReac Type Severity Reaction Status Date / Time No Known Allergies Allergy Verified 09/05/21 13:54 Exam Vital signs and Labs for Last 24 Hours: Temp Pulse Resp BP Pulse Ox 98.8 F 96 H 14 131/76 94 L 09/11/21 13:02 09/11/21 13:10 09/11/21 13:10 09/11/21 13:10 09/11/21 13:10 Laboratory Results - last 24 hr 09/11/21 06:30: WBC 17.0 H, RBC 3.76 L, Hgb 11.7 L, Hct 36.3 L, MCV 96.5, MCH 31.0, MCHC 32.2, RDW 14.6, Plt Count 237 D, MPV 9.3, Neut % (Auto) 90.0 H, Lymph % (Auto) 5.8 L, [place] % (Auto) 3.3, Eos % (Auto) 0.2, Baso % (Auto) 0.7, Neut # (Auto) 15.3 H, Lymph # (Auto) 1.0, [place] # (Auto) 0.6, Eos # (Auto) 0.0, Baso # (Auto) 0.1, Total Counted 100, Neutrophils % (Manual) 96 H, Lymphocytes % (Manual) 1 L, Monocytes % (Manual) 3, Toxic Granulation 1+, Platelet Estimate Normal, Hypochromasia 1+, Anisocytosis 1+, Macrocytosis 1+ 09/11/21 06:30: Sodium 134 L, Potassium 3.7, Chloride 104, Carbon Dioxide 24, Anion Gap 9.7, BUN 21 H, Creatinine 1.30 H, Estimated Creat Clear 90, Estimated GFR 42 L, Est GFR ( Amer) 51 L, Glucose 109 H, Calcium 8.5 09/11/21 11:25: Urine HCG, Qual Negative I & O for Last 24 hours: Intake & Output 09/08/21 09/09/21 09/10/21 09/11/21 23:59 23:59 23:59 23:59 Intake Total 3930 / 3930 1728 / 1728 Output Total 250 / 500 250 / 250 Balance 3680 / 3430 1478 / 1478 Weight 115.076 kg 115 kg 119.658 kg Microbiology Reports for the Last 24 Hours: Microbiology 09/09/21 19:45 Blood Blood Culture - Preliminary Gram Negative Rods 09/09/21 19:49 Blood Blood Culture - Preliminary
--- NOTE | 2021-09-11 13:48 | HMH.OPNOTE ---
Date of procedure: 09/11/21 Pre-op Diagnosis:: Left ureteral calculi with obstruction Post-op Diagnosis:: No evidence of ureteral calculi, but there is evidence of a left lower pole stone Procedure performed:: Left ureteroscopy with left stent placement Surgeon:: Braulio Moreno MD CLINICAL OPERATIONS SPECIALIST:: Other (artem s) Anesthesia: LMA Estimated blood loss (mL): 0 Clinical Note:: 56-year-old white female with left renal calculi after recent ESWL. She has been hospitalized for 48 hours and on IV antibiotics due to urosepsis. She presents for management of the ureteral calculi. Operative findings:: Ureteroscopy showed no evidence of ureteral stones. Apparently there has been spontaneous passage of the stones. The only calcification noted was in the left lower pole on fluoroscopy. Operative note:: Patient taken to the operating room after informed consent was obtained. She was placed on the operating table in the supine position and general anesthesia administered. She was on preoperative Invanz on the floor. She was placed into the dorsal lithotomy position and prepped draped in the standard surgical fashion. Vaginal examination revealed a large cystocele and it was reduced with 3 Ray-Dany's placed into the vagina to elevate the trigone. The cystoscope then passed into the urethra and the bladder examined in a systematic fashion. There is no evidence of mucosal abnormality stones or diverticula. The ureteral orifices in their normal anatomic position. A 0.035 sensor guidewire was passed into the left ureteral orifice and under fluoroscopy passed up to the renal pelvis. There is no resistance to passage of the wire and no calcifications were noted along the course of the ureter. The cystoscope then removed and the semirigid ureteroscope passed into the urethra and into the left ureter. The ureteroscope passed easily into the left ureteral orifice and up to the left proximal ureter and there is no evidence of any stones noted in the course of the ureter. The ureteroscope then removed and the cystoscope was removed replaced and the guidewire was backloaded over the scope and a 4.8 x 24 German stent was passed over the guidewire and under fluoroscopy the guidewire was removed with a good curl noted proximally and distally. The string was left on for later removal. The patient tolerated the procedure well there are no complications. Condition: stable Disposition: PACU Specimens:: None Complications:: None
--- NOTE | 2021-09-11 16:36 | PC.NURSE ---
Pt went to surgery this shift, upon arrival back to the floor, pt O2 sat started at 91% on 6L NC, pt O2 sat now at 96% 4L NC. Pt is resting well and daughter in the room. Pt has ambulated to the restroom with 1x assist, tolerated well. Pt has no new complaints. VSS. Will continue to monitor. Call light in reach and working.
[2021-09-12 03:00] VITALS: BP 151/98; PULSE 77; RESP 20; TEMP 37.2; O2SAT 95
[2021-09-12 05:12] VITALS: BMI 38.7
--- NOTE | 2021-09-12 05:16 | PC.NURSE ---
Patient resting well throughout shift. Patient currently on 3L nc sating 94%. Patient ambulating to the restroom throughout shift. Urine being strained with no calculi noted thus far. No complaints of pain or concerns expressed. VSS.
[2021-09-12 07:06] LABS: Basophils % 0.2 % (0.1-2.0); Eosinophils % 0.1 % (0.1-12.0); Hematocrit 33.9 % (37.0-47.0); Hemoglobin 11.2 g/dL (12.2-16.2); Lymphocytes # 1.1 K/mm3 (0.7-4.5); Mean Corpuscular HGB Conc 32.9 g/dL (31.8-35.4); Mean Corpuscular Hemoglobin 31.8 pg (27.0-31.2); Mean Corpuscular Volume 96.8 fl (81-99); Monocytes # 0.5 K/mm3 (0.1-1.0); Monocytes % 2.9 % (1.7-9.3); Neutrophils # 14.4 K/mm3 (1.8-7.8); Neutrophils % 89.9 % (37.0-80.0); Platelet Count 271 K/mm3 (142-424); Red Blood Count 3.51 M/mm3 (4.20-5.40); Red Cell Distribution Width 14.7 % (11.5-17.5)
[2021-09-12 07:11] LABS: Anion Gap 10.9 mEq/L (5-15); Blood Urea Nitrogen 23 mg/dl (7-17); Calcium 8.6 mg/dl (8.4-10.2); Carbon Dioxide 24 mmol/L (22.0-30.0); Chloride 108 mmol/L (98-107); Creatinine Clearance Estimated 106 mL/min (50-200); Estimated Glomerular Filt Rate 51 ml/min (>60); GFR (African American) 62 ML/MIN (>60); Glucose 136 mg/dl (74-100); Potassium 3.9 mmoL/L (3.5-5.1); Sodium 139 mmol/L (136-145)
[2021-09-12 07:14] LABS: MANUAL DIFFERENTIAL MANUAL DIFFERENTIAL (MANUAL DIFF)
[2021-09-12 07:43] LABS: Lymphocytes % 7 % (10-50); Monocytes % 2 % (2-9); Neutrophils % 89 % (42-76); Total Cells Counted 100
[2021-09-12 07:44] LABS: Platelet Estimate Normal; RBC Morphology Normal
[2021-09-12 08:00] VITALS: BP 143/92; PULSE 95; RESP 16; TEMP 36.6; O2SAT 91
--- NOTE | 2021-09-12 08:53 | HMH.ACPN2 ---
Internal Medicine - PN: Subj *Date: 09/12/21 *Time: 08:10 Interval history: pt states she is feeling better Exam Vital signs and Labs for Last 24 Hours: Temp Pulse Resp BP Pulse Ox 97.9 F 95 H 16 143/92 H 91 L 09/12/21 08:00 09/12/21 08:00 09/12/21 08:00 09/12/21 08:00 09/12/21 08:00 Laboratory Results - last 24 hr 09/11/21 11:25: Urine HCG, Qual Negative 09/12/21 06:33: WBC 16.0 H, RBC 3.51 L, Hgb 11.2 L, Hct 33.9 L, MCV 96.8, MCH 31.8 H, MCHC 32.9, RDW 14.7, Plt Count 271, MPV 10.0, Neut % (Auto) 89.9 H, Lymph % (Auto) 7.0 L, [place] % (Auto) 2.9, Eos % (Auto) 0.1, Baso % (Auto) 0.2, Neut # (Auto) 14.4 H, Lymph # (Auto) 1.1, [place] # (Auto) 0.5, Eos # (Auto) 0.0, Baso # (Auto) 0.0, Total Counted 100, Neutrophils % (Manual) 89 H, Band Neutrophils % 2.0, Lymphocytes % (Manual) 7 L, Monocytes % (Manual) 2, Platelet Estimate Normal, RBC Morphology Normal 09/12/21 06:33: Sodium 139, Potassium 3.9, Chloride 108 H, Carbon Dioxide 24, Anion Gap 10.9, BUN 23 H, Creatinine 1.10 H, Estimated Creat Clear 106, Estimated GFR 51 L, Est GFR ( Amer) 62 D, Glucose 136 H, Calcium 8.6 I & O for Last 24 hours: Intake & Output 09/09/21 09/10/21 09/11/21 09/12/21 11:59 11:59 11:59 11:59 Intake Total 772 / 772 4286 / 4286 2616 / 2616 Output Total 250 / 250 250 / 250 700 / 700 Balance 522 / 522 4036 / 4036 1916 / 1916 Weight 253 lb 11.2 oz 263 lb 12.8 oz 261 lb 12.8 oz Microbiology Reports for the Last 24 Hours: Microbiology 09/09/21 19:45 Blood Blood Culture - Final Klebsiella pneumoniae 09/09/21 19:49 Blood Blood Culture - Final Klebsiella pneumoniae 09/09/21 19:13 Urine,Clean Catch Urine Culture - Final Klebsiella pneumoniae - Constitutional no acute distress - *Routine HEENT Exam Head: Present: normocephalic Eye: Present: PERRL ENT: Present: mucous membranes moist - *Routine Neck Exam Present: supple. Absent: lymphadenopathy - *Routine Respiratory Exam Present: CTA bilaterally - *Routine Cardiovascular Exam Present: RRR - *Routine Abdominal Exam Present: soft, normoactive bowel sounds. Absent: tenderness - *Routine Extremities Exam Absent: cyanosis, clubbing, edema - *Routine Skin Exam Present: warm. Absent: rash - *Routine Neurological Exam Present: alert, oriented X3 Assessment and Plan (1) DISH (diffuse idiopathic skeletal hyperostosis) Status: Acute Category: Medical Code(s): M48.10 - Ankylosing hyperostosis [Forestier], site unspecified (2) Hydronephrosis concurrent with and due to calculi of kidney and ureter Status: Acute Category: Medical Code(s): N13.2 - Hydronephrosis with renal and ureteral calculous obstruction (3) Nausea & vomiting Status: Acute Qualifiers: Vomiting type: unspecified Qualified Code(s): R11.2 - Nausea with vomiting, unspecified Category: Medical Code(s): R11.2 - Nausea with vomiting, unspecified (4) Renal colic on left side Status: Acute Category: Medical Code(s): N23 - Unspecified renal colic (5) Severe sepsis with acute organ dysfunction Status: Acute Category: Medical Code(s): A41.9 - Sepsis, unspecified organism; R65.20 - Severe sepsis without septic shock (6) UTI (urinary tract infection) Status: Acute Qualifiers: Urinary tract infection type: site unspecified Hematuria presence: without hematuria Qualified Code(s): N39.0 - Urinary tract infection, site not specified Category: Medical Code(s): N39.0 - Urinary tract infection, site not specified (7) Urinary tract infection due to Klebsiella species Status: Acute Category: Medical Code(s): N39.0 - Urinary tract infection, site not specified; B96.89 - Other specified bacterial agents as the cause of diseases classified elsewhere (8) Bacteremia due to Klebsiella pneumoniae Status: Acute Category: Medical Code(s): R78.81 - Ba
--- NOTE | 2021-09-12 09:48 | PC.NURSE ---
Did RA on PT it is 93%. She got a little anxious so I placed her back on 1L NC and told her that we would try within the hour to try and get her fully back to RA.
--- NOTE | 2021-09-12 10:09 | INFXCTL.NOTE ---
Called and left a message for Loretta or carley about pts RA status. Waiting to call back.
[2021-09-12 10:56] VITALS: BP 144/78; PULSE 98; TEMP 37.2
--- NOTE | 2021-09-12 10:56 | P.PN_ITS ---
[facility] Anesthesia Record Part II Discharge Time: 13:50 Destination: Medical Surgical Department PACU nurse assessment reviewed?: Yes Patient Condition:: Good Anesthesia Complications:: None Swallowing reflex intact?: Yes Cyanosis?: No Blood Pressure: 144/78 Pulse Rate: 98 Temperature: 98.9 F Mental Status: Alert & Oriented Pain level:: 0 Nausea and/or vomitting:: None Intake, IV Amount: 0
[2021-09-12 12:00] VITALS: BP 155/94; PULSE 82; RESP 16; TEMP 36.6; O2SAT 95
--- NOTE | 2021-09-12 14:11 | HMH.CONFU ---
Internal Medicine - PN: Tristan *Date: 09/12/21 *Time: 14:11 Interval history: Patient status post left ureteroscopy and stent placement yesterday. She feels much better today but is having some decreased O2 sats. Recent chest x-ray showed some opacities and atelectasis. Her white count is 16,000 today. Her urine and blood cultures are growing out Klebsiella and she is now on Levaquin. Ureteroscopy revealed no evidence of stones in the ureter and she must of passed on him at some point and they were not caught with straining. Exam Vital signs and Labs for Last 24 Hours: Temp Pulse Resp BP Pulse Ox 97.8 F 82 16 155/94 H 95 09/12/21 12:00 09/12/21 12:00 09/12/21 12:00 09/12/21 12:00 09/12/21 12:00 Laboratory Results - last 24 hr 09/12/21 06:33: WBC 16.0 H, RBC 3.51 L, Hgb 11.2 L, Hct 33.9 L, MCV 96.8, MCH 31.8 H, MCHC 32.9, RDW 14.7, Plt Count 271, MPV 10.0, Neut % (Auto) 89.9 H, Lymph % (Auto) 7.0 L, [place] % (Auto) 2.9, Eos % (Auto) 0.1, Baso % (Auto) 0.2, Neut # (Auto) 14.4 H, Lymph # (Auto) 1.1, [place] # (Auto) 0.5, Eos # (Auto) 0.0, Baso # (Auto) 0.0, Total Counted 100, Neutrophils % (Manual) 89 H, Band Neutrophils % 2.0, Lymphocytes % (Manual) 7 L, Monocytes % (Manual) 2, Platelet Estimate Normal, RBC Morphology Normal 09/12/21 06:33: Sodium 139, Potassium 3.9, Chloride 108 H, Carbon Dioxide 24, Anion Gap 10.9, BUN 23 H, Creatinine 1.10 H, Estimated Creat Clear 106, Estimated GFR 51 L, Est GFR ( Amer) 62 D, Glucose 136 H, Calcium 8.6 I & O for Last 24 hours: Intake & Output 09/09/21 09/10/21 09/11/21 09/12/21 23:59 23:59 23:59 23:59 Intake Total 3930 / 3930 3184 / 3184 800 / 800 Output Total 250 / 500 250 / 950 700 / 700 Balance 3680 / 3430 2934 / 2234 100 / 100 Weight 115.076 kg 115 kg 119.658 kg 118.75 kg Microbiology Reports for the Last 24 Hours: Microbiology 09/09/21 19:45 Blood Blood Culture - Final Klebsiella pneumoniae 09/09/21 19:49 Blood Blood Culture - Final Klebsiella pneumoniae - Constitutional no acute distress - *Routine HEENT Exam Head: Present: normocephalic Eye: Present: EOMI, PERRL ENT: Present: mucous membranes moist - *Routine Neck Exam Present: supple. Absent: lymphadenopathy - *Routine Respiratory Exam Absent: accessory muscle use - *Routine Cardiovascular Exam Absent: JVD - *Routine Abdominal Exam Present: soft. Absent: tenderness - *Routine Extremities Exam Absent: cyanosis, clubbing, edema - *Routine Skin Exam Present: warm. Absent: rash - *Routine Neurological Exam Present: alert, oriented X3 Assessment and Plan (1) DISH (diffuse idiopathic skeletal hyperostosis) Status: Acute Category: Medical Code(s): M48.10 - Ankylosing hyperostosis [Forestier], site unspecified (2) Hydronephrosis concurrent with and due to calculi of kidney and ureter Status: Acute Category: Medical Code(s): N13.2 - Hydronephrosis with renal and ureteral calculous obstruction Patient with left hydro and left renal colic and urosepsis due to some ureteral calculi that were obstructing. She underwent ureteroscopy yesterday that showed no evidence of stones in the course of the ureter and she had spontaneous passage but unfortunately they were not caught. Stent was placed to ensure adequate drainage of the kidney. She also does have some decreased O2 sats and abnormal chest x-ray and pneumonia could be part of the picture. She is currently on Levaquin for the positive urine and blood cultures. I will plan on seeing her back in 1 week with a KUB. (3) Nausea & vomiting Status: Acute Qualifiers: Vomiting type: unspecified Qualified Code(s): R11.2 - Nausea with vomiting, unspecified Category: Medical Code(s): R11.2 - Nausea with vomiting, unspecified (4) Renal colic on left side Status: Acute Category: Medical Code(s): N23 - Unspecified renal colic (5) Severe
[2021-09-12 15:40] VITALS: BP 177/86; PULSE 92; RESP 20; TEMP 36.6; O2SAT 95
--- NOTE | 2021-09-12 17:41 | PC.NURSE ---
Asked pt to let me change her IV. She stated that she should get to go home tomorrow and does not want to change it. She stated that if she isn't going home tomorrow she will change it then.
[2021-09-12 20:00] VITALS: BP 128/69; PULSE 64; RESP 16; TEMP 36.7; O2SAT 96
[2021-09-13 04:00] VITALS: BP 128/78; PULSE 64; RESP 16; TEMP 36.6; O2SAT 96
--- NOTE | 2021-09-13 04:34 | PC.NURSE ---
Patient resting well throughout shift. Patient tolerating RA sating 96%. Patient ambulating to the restroom throughout shift. Patient does express pain from a headache medicated per mar. No other concerns expressed. VSS.
[2021-09-13 05:00] VITALS: BMI 38.7
[2021-09-13 06:20] LABS: Basophils # 0.1 K/mm3 (0-0.2); Basophils % 0.8 % (0.1-2.0); Eosinophils # 0.1 K/mm3 (0.0-0.4); Hematocrit 37.2 % (37.0-47.0); Hemoglobin 12.2 g/dL (12.2-16.2); Lymphocytes # 1.3 K/mm3 (0.7-4.5); Lymphocytes % 13.1 % (10-50); Mean Corpuscular HGB Conc 32.8 g/dL (31.8-35.4); Mean Corpuscular Hemoglobin 31.3 pg (27.0-31.2); Mean Corpuscular Volume 95.5 fl (81-99); Monocytes # 0.6 K/mm3 (0.1-1.0); Monocytes % 5.9 % (1.7-9.3); Neutrophils # 7.7 K/mm3 (1.8-7.8); Neutrophils % 79.4 % (37.0-80.0); Platelet Count 302 K/mm3 (142-424); Red Cell Distribution Width 14.8 % (11.5-17.5); White Blood Count 9.7 K/mm3 (4.8-10.8)
[2021-09-13 06:27] LABS: Anion Gap 10.4 mEq/L (5-15); Blood Urea Nitrogen 21 mg/dl (7-17); Calcium 8.7 mg/dl (8.4-10.2); Carbon Dioxide 24 mmol/L (22.0-30.0); Chloride 108 mmol/L (98-107); Creatinine Clearance Estimated 116 mL/min (50-200); Estimated Glomerular Filt Rate 57 ml/min (>60); GFR (African American) 69 ML/MIN (>60); Glucose 108 mg/dl (74-100); Potassium 3.4 mmoL/L (3.5-5.1); Sodium 139 mmol/L (136-145)
[2021-09-13 08:00] VITALS: BP 153/88; PULSE 102; RESP 20; TEMP 36.7; O2SAT 94
--- NOTE | 2021-09-13 11:57 | HMH.DCSUM ---
General - General Admission date:: 09/09/21 Discharge date: 09/13/21 HPI HPI: 56 yr old female presented to ed with c/o back pain and fever. Pt states recent lipotripsy to break up a stone about 2 weeks ago. pt states she started having back pain with a fever and chills. Pt states the symptoms continued and worsened so she came into the ed. while in ed she was found to have severe sepsis with organ dysfunction and admitted to hospital for IV antibiotics and urology consult. Pt states she has continued with fever and chills over night. Hospital Course Hospital Course: The patient was admitted for IV antibiotics and further urology treatment. Patient has had stones on the left, was taken to the operating room on September 11 and ureteroscopy suggested spontaneous passage of the stones. Cultures and urine cultures grew out Klebsiella pneumonia. Patient has been stable on IV Levaquin. Discussed with clinical pharmacist, p.o. Levaquin should offer good bio equivalents and we will continue her for 10 more days at the 750 daily. Objective Vital signs: Temp Pulse Resp BP Pulse Ox 98.1 F 102 H 20 153/88 H 94 L 09/13/21 08:00 09/13/21 08:00 09/13/21 08:00 09/13/21 08:00 09/13/21 08:00 no acute distress - *Routine HEENT Exam Head: Present: normocephalic Eye: Present: EOMI, PERRL ENT: Present: mucous membranes moist - *Routine Neck Exam Present: supple - *Routine Respiratory Exam Present: CTA bilaterally - *Routine Cardiovascular Exam Present: RRR - *Routine Abdominal Exam Present: soft, normoactive bowel sounds. Absent: tenderness - *Routine Extremities Exam Absent: cyanosis, clubbing, edema - *Routine Skin Exam Present: warm. Absent: rash Results Labs on day of discharge: Labs from last 24 hours 09/13/21 09/13/21 06:05 06:05 WBC 9.7 D RBC 3.90 L Hgb 12.2 Hct 37.2 MCV 95.5 MCH 31.3 H MCHC 32.8 RDW 14.8 Plt Count 302 MPV 9.0 Neut % (Auto) 79.4 Lymph % (Auto) 13.1 [place] % (Auto) 5.9 Eos % (Auto) 1.0 Baso % (Auto) 0.8 Neut # (Auto) 7.7 Lymph # (Auto) 1.3 [place] # (Auto) 0.6 Eos # (Auto) 0.1 Baso # (Auto) 0.1 Sodium 139 Potassium 3.4 L Chloride 108 H Carbon Dioxide 24 Anion Gap 10.4 BUN 21 H Creatinine 1.00 Estimated Creat Clear 116 Estimated GFR 57 L Est GFR ( Amer) 69 Glucose 108 H D Calcium 8.7 DS: Diagnosis - Discharge Diagnosis (1) DISH (diffuse idiopathic skeletal hyperostosis) Status: Chronic (2) Hydronephrosis concurrent with and due to calculi of kidney and ureter Status: Acute (3) Nausea & vomiting Status: Acute (4) Renal colic on left side Status: Acute (5) Severe sepsis with acute organ dysfunction Status: Acute (6) UTI (urinary tract infection) Status: Acute (7) Urinary tract infection due to Klebsiella species Status: Acute (8) Bacteremia due to Klebsiella pneumoniae Status: Acute Discharge Plan - Patient Discharge Instructions ACTIVITY: Continue current activity Patient Instructions: DI for Kidney Stones, DI for Urinary Tract Infection (UTI), DI for Nausea -- Adult, DI for Vomiting -- Adult, DI for Sepsis -- Adult - Follow up Plan Follow up with: Braulio Moreno MD [Staff Physician] - 09/18/21 1:00 pm (KUB in radiology before your dr appointment.) Richie Francisco MD [Staff Physician] - 09/16/21 Disposition: Home, Self-Care Condition at discharge:: Improved Home Medications: Home Medications Medication Instructions Recorded Confirmed Type No Known Home Medications 08/29/21 09/09/21 History Butalbit/Acetamin/Caff/Codeine 1 each PO BIDP PRN #14 capsule 09/13/21 Rx [Fioricet-Cod 45-927-10-30 Cap] levoFLOXacin [Levaquin 750mg 750 mg PO DAILY #10 tab 09/13/21 Rx tablet] Prescriptions/Medication Reconciliation: New Butalbit/Acetamin/Caff/Codeine [Fioricet-Cod 02-188-32-30 Cap] 1 each PO BIDP PRN #14 caps
--- NOTE | 2021-09-13 16:23 | PC.NURSE ---
Contacted by Dr Eastman r/t pts home pharmacy being closed at this time. Per MD request meds were called into [facility] pharmacy in [place]. [id number]
--- NOTE | 2021-09-16 13:44 | CARE MANAGER ---
Called and spoke with Ms. Henao regarding post discharge status. Patient states that she was able to cook pickled meat her antibiotic but did not feel as though she needed the pain pills that were prescribed. Patient has a f/u with Dr. Moreno on 09/18., and I advised her to call Dr. Francisco' office to schedule an appointment due to office being closed at time of discharge. Patient had no complaints at time of phone call, other than being tired.
== END 2021-09-13 15:22 | disposition home or self-care (01) | DRG 872 ==
LOC: ER 19:27 → 2ND 21:04
PROVIDERS: Nurse Practitioner Family; Urology; Admitting Provider Emergency Medicine; Emergency Provider Emergency Medicine; Visit Provider Emergency Medicine
PROC: 0T773DZ Dilation of Left Ureter with Intraluminal Device, Percutaneous Approach (ICD-10-PCS; CPT 52352; principal; 2021-09-11 11:30)
DX: A41.50 Gram-negative sepsis, unspecified (principal); N13.6 Pyonephrosis; N39.0 Urinary tract infection, site not specified; R65.20 Severe sepsis without septic shock; M48.10 Ankylosing hyperostosis [Forestier], site unspecified
CPT/HCPCS: 52332; 36415; 71046; 74018; 74176; 76000; 80048; 80053; 81001; 81025; 83605; 84484; 85007; 85025; 87040; 87077; 87086; 87088; 87186; 93005; 96375; 99285; C2617; C9803; J0696; J1335; J1956; J2405; U0003; U0005

== ENCOUNTER → 2021-09-18 11:06 | Outpatient (CLI) | payer BC, SELFPAY ==
--- NOTE | 2021-09-18 11:10 | XR_ITS ---
FINAL REPORT CLINICAL HISTORY: kidney stone follow up COMPARISON: September 11, 2021 FINDINGS: SINGLE VIEW ABDOMEN A single view of the abdomen was obtained. There has been interval placement of a left ureteral stent. There is a nonobstructive bowel gas pattern. There are no abnormally dilated loops of small bowel. There are several stones overlying the lower pole of the left kidney measuring up to 7 mm. There are numerous phleboliths in the pelvis. A distal left ureteral stone cannot be excluded. IMPRESSION: Nonobstructive bowel gas pattern. Several stones overlying the lower pole of left kidney. A distal left ureteral stone cannot be excluded. Reviewed, Interpreted and Dictated by Jacob Lee III, MD Transcribed by Amarilis Collins Authenticated and [facility]
== END ==
PROVIDERS: PCP Family Medicine; Visit Provider Urology
DX: N20.0 Calculus of kidney (principal)
CPT/HCPCS: 74018; 82370

== ENCOUNTER → 2021-09-19 07:30 | Outpatient (CLI) | payer BC, SELFPAY | PROVIDERS: Visit Provider Urology | DX: N20.0 Calculus of kidney (principal) ==

== ENCOUNTER → 2021-11-21 13:08 | Outpatient (CLI) | payer BC, SELFPAY ==
[2021-11-21 19:25] LABS: Alanine Aminotransferase 37 U/L (12-78); Albumin Level 4.3 g/dl (3.5-5.0); Albumin/Globulin Ratio 1.3 (1.1-1.8); Alkaline Phosphatase 101 U/L (38-126); Anion Gap 13.4 mEq/L (5-15); Aspartate Amino Transferase 42 U/L (14-36); Bilirubin,Total 0.6 mg/dl (0.2-1.3); Blood Urea Nitrogen 22 mg/dl (7-17); Calcium 10.5 mg/dl (8.4-10.2); Carbon Dioxide 24 mmol/L (22.0-30.0); Chloride 108 mmol/L (98-107); Estimated Glomerular Filt Rate 65 ml/min (>60); GFR (African American) 78 ML/MIN (>60); Globulin 3.3 g/dL (1.3-3.2); Glucose 85 mg/dl (74-100); Potassium 4.4 mmoL/L (3.5-5.1); Sodium 141 mmol/L (136-145); Total Protein,Serum 7.6 g/dl (6.3-8.2); Uric Acid 6.4 mg/dl (2.5-6.2)
[2021-11-21 19:56] LABS: Thyroid Stimulating Hormone 1.03 uIU/mL (0.465-4.68)
== END ==
PROVIDERS: PCP Family Medicine; Visit Provider Family Medicine
DX: I15.1 Hypertension secondary to other renal disorders (principal); N28.89 Other specified disorders of kidney and ureter; N20.0 Calculus of kidney
CPT/HCPCS: 80053; 84443; 84550

== ENCOUNTER → 2021-12-09 14:25 | Outpatient (CLI) | payer BC, SELFPAY ==
[2021-12-09 18:38] LABS: Anion Gap 15.1 mEq/L (5-15); Blood Urea Nitrogen 33 mg/dl (7-17); Calcium 10.7 mg/dl (8.4-10.2); Carbon Dioxide 23 mmol/L (22.0-30.0); Chloride 106 mmol/L (98-107); Estimated Glomerular Filt Rate 46 ml/min (>60); GFR (African American) 56 ML/MIN (>60); Glucose 103 mg/dl (74-100); Potassium 5.1 mmoL/L (3.5-5.1); Sodium 139 mmol/L (136-145)
== END ==
PROVIDERS: PCP Family Medicine; Visit Provider Family Medicine
DX: I10 Essential (primary) hypertension (principal)
CPT/HCPCS: 80048